=== PATIENT | female | born 1945 | race Caucasian/White ===

== ENCOUNTER 2017-09-13 05:19 | Day surgery (SDC) | payer OTHER | END 2017-09-13 10:45 | disposition home or self-care (01) | LOC: AMB-ENDOS 05:19 | DX: K57.30 Diverticulosis of large intestine without perforation or abscess without bleeding (principal); K92.1 Melena; K64.1 Second degree hemorrhoids; Z85.038 Personal history of other malignant neoplasm of large intestine ==

== ENCOUNTER 2018-10-24 11:25 | Day surgery (SDC) | payer OTHER | END 2018-10-24 17:00 | disposition home or self-care (01) | LOC: AMB-ENDOS 11:25 | DX: K64.1 Second degree hemorrhoids (principal) ==